=== PATIENT | male | born 1965 | race Caucasian/White ===

== ENCOUNTER 2021-05-21 20:22 | Emergency (ER) | payer MEDICARE, OTHER ==
[2021-05-21] MEDS ORDERED: CEPHALEXIN500 MG PO (21:00)
== END 2021-05-21 21:19 | disposition home or self-care (01) ==
LOC: ER1 20:22
DX: S60.943A Unspecified superficial injury of left middle finger, initial encounter (principal); I10 Essential (primary) hypertension; E78.5 Hyperlipidemia, unspecified; Z88.1 Allergy status to other antibiotic agents; X58.XXXA Exposure to other specified factors, initial encounter
CPT/HCPCS: 99283